=== PATIENT | female | born 1990 | race Caucasian/White ===

== ENCOUNTER 2022-11-10 07:49 | Inpatient (IN) ==
[2022-11-11] MEDS ORDERED: DINOPROSTONE 10 MG INSERT PV ONE (09:44)
[2022-11-11] MEDS ORDERED: LIDOCAINE 1% LOCAL 20 ML VIAL INFIL PRN (10:15)
[2022-11-11] MEDS ORDERED: LACTATED RINGER'S 1,000 ML IV PRN (10:15)
[2022-11-11] MEDS ORDERED: OXYTOCIN 30 UNITS/500 ML BAG IV PRN (10:15)
--- NOTE | 2022-11-11 10:42 | History & Physical Report ---
Date of Service November 11, 2022 Assessment & Plan (1) Encounter for induction of labor: Present on Admission?: Yes Plan Admit to L and D Regular diet x 2 then npo/iv fluids labs Cervidil placed PV for cervical softening consider Pitocin for augmentation of labor pain meds including epidural as the pt desires Admission and Anticipated Discharge Date Admission Date: November 11, 2022 History of Present Illness Chief Complaint: pt 32 yr old G1 IUP at 40 weeks 2 days for induction of labor for post dates. Primary Care Provider: NO PCP pt denies regular uterine contractions, vaginal bleeding, leaking of fluid per vagina. reports good movement. Allergies Allergy/AdvReac Type Severity Reaction Status Date / Time No Known Allergies Allergy NONE Unverified 03/12/09 11:44 Home Medications Medication Instructions Recorded Confirmed Type ferrous sulfate 325 mg (65 mg 325 mg PO BID ##0 03/12/09 11/11/22 History iron) tablet (Iron (ferrous sulfate)) docusate sodium 100 mg capsule 100 mg PO 11/11/22 History (Colace) Patient History Medical History Anemia Anxiety Scoliosis Surgical History Hx of tonsillectomy Social History Smoking Status: Never smoker Second Hand Exposure: No; Do You Dip or Chew Tobacco: No; Tobacco Cessation Education Requested by Patient: No Hx Alcohol Use: No Hx Substance Use: No Preferred Language: [place] Communication Ability: Effective Straddle Bug Operator Required: No Beliefs That Will Affect Care: None marital status: Current Living Situation: Spouse Current Living Situation Comment: Memo- Other Information That Helps Us Care for You: No Feels Safe at Home: Yes Safety Concerns: Feels Safe At This Time Assistive Devices: None Review of Systems All systems reviewed & are unremarkable except as noted in HPI & below as per Subjective / HPI as per Subjective / HPI as per Subjective / HPI as per Subjective / HPI as per Subjective / HPI Physical Exam Constitutional: WD/WN, vitals as above Respiratory: normal respiratory effort, lungs clear to auscultation Cardiovascular: RRR, no murmur, no edema Gastrointestinal (Abdomen): normal bowel sounds, soft, nontender, no hepatosplenomegaly Skin: no rashes, warm and dry Psychiatric: A+Ox3, euthymic affect Genitourinary: no vaginal lesions, no adnexal mass OB Exam Abdomen: + fundal height (39 cm), + heart tones (140s, good variability, positive accelerations), + vertex, + estimated weight (7 lbs 5 ozs) and + regular contractions Manual OB Exam: + cervical dilation fingertip, + cervical effacement 40% and + station high OB Exam Monitor Tracing: + external FHT monitor used and + category I Results & Data Vital Signs (Past 12 Hours) Vital Signs Temp Pulse Resp BP 11/11/22 10:32 70 132/71 11/11/22 09:22 88 123/81 11/11/22 09:22 37.3 C 88 18 123/81 Supervising Physician Co-Signing Physician Notes DR. Lm Ferguson MD
[2022-11-11 11:03] LABS: Hematocrit (blood only) 34.7 % (37.0-47.0); Hemoglobin 12.2 g/dl (12.0-16.0); Mean Corpuscular Hemoglobin 33.2 pg (25.0-34.0); Mean Corpuscular Hgb Conc 35.2 g/dL (32.0-36.0); Mean Corpuscular Volume 94.3 fL (80.0-100.0); Mean Platelet Volume 10.2 fL (9.4-12.4); Platelet Count 168 K/uL (130-400); RDW Coefficient of Variation 13.6 % (11.5-14.5); RDW Standard Deviation 47.3 fL (36.4-46.3); Red Blood Count 3.68 M/uL (4.20-5.40); White Blood Count 9.76 K/ul (4.8-10.8)
[2022-11-11] MEDS: ACETAMINOPHEN 500 MG TAB PO PRN (23:27)
[2022-11-12] MEDS ORDERED: miSOPROStoL 25 MCG TAB PO ONE (04:38)
[2022-11-12] MEDS ORDERED: DINOPROSTONE 10 MG INSERT PV ONE (08:53)
--- NOTE | 2022-11-12 09:12 | Labor Progress Brief Note ---
Date of Service November 12, 2022 Subjective Reason For Note: Routine Evaluation Assessment & Plan (1) Encounter for induction of labor: Plan Cervidil ( second one ) placed PV for cervical softening pain meds as the pt desires Admission and Anticipated Discharge Date Admission Date: November 11, 2022 Physical Exam Constitutional: WD/WN, vitals as above Genitourinary: no vaginal lesions, no adnexal mass OB Exam Abdomen: + heart tones (140s, Good variability, positive accelerations ), + vertex and + posterior Manual OB Exam: + cervical dilation fingertip, + cervical effacement 40% and + station high OB Exam Monitor Tracing: + external FHT monitor used and + category I Results & Data Vital Signs (Past 12 Hours) Vital Signs Temp Pulse Resp BP 11/12/22 08:00 37.1 C 16 11/12/22 08:00 16 11/12/22 07:58 71 118/75 11/12/22 03:48 61 116/74 11/11/22 22:55 36.9 C 68 18 121/71 Supervising Physician Co-Signing Physician Notes Dr. Lm Ferguson MD
[2022-11-12] MEDS: ACETAMINOPHEN 500 MG TAB PO PRN (20:16)
--- NOTE | 2022-11-12 22:24 | Labor Progress Brief Note ---
Date of Service November 12, 2022 Subjective Reason For Note: Routine Evaluation Assessment & Plan (1) Encounter for induction of labor: Plan Cervidil PV removed Will consider pitocon if the contractions space out For now: warm showers, ambulation Stadol 1 MG IV prn , when pt ready can get epidural Admission and Anticipated Discharge Date Admission Date: November 11, 2022 Physical Exam Physical Exam: pt c/o regular painful contractions. Constitutional: WD/WN, vitals as above Genitourinary: OB Exam Abdomen: + heart tones (140s, Good variability, positive accelerations ) and + vertex Manual OB Exam: + cervical dilation (1 to 2 cm), + cervical effacement 70% and + station -2 OB Exam Monitor Tracing: + external FHT monitor used and + category I Results & Data Vital Signs (Past 12 Hours) Vital Signs Temp Pulse Resp BP 11/12/22 19:03 37.0 C 20 11/12/22 19:07 68 122/76 11/12/22 15:55 37.0 C 83 16 121/67 11/12/22 13:30 18 11/12/22 13:30 37.1 C 18 11/12/22 13:12 74 121/68 Supervising Physician Co-Signing Physician Notes DR. Lm Ferguson MD
[2022-11-12] MEDS ORDERED: BUTORPHANOL TARTRATE 1 MG/ML VIAL IV PRN (23:02)
--- NOTE | 2022-11-13 10:04 | Labor Progress Brief Note ---
Date of Service November 13, 2022 Assessment & Plan Admission and Anticipated Discharge Date Admission Date: November 11, 2022 Physical Exam Genitourinary: OB Exam Abdomen: + estimated weight Manual OB Exam: + cervical dilation 3 cm and 4 cm, + cervical effacement 70% and + station -2 OB Exam Monitor Tracing: + external FHT monitor used, + external uterine monitor used, + category I and + normal FHT variability EFW 7-8 lbs. Results & Data Vital Signs (Past 12 Hours) Vital Signs Temp Pulse Resp BP 11/13/22 07:05 16 11/13/22 07:05 37.5 C 11/13/22 07:06 71 121/73 11/13/22 04:30 18 11/13/22 04:30 37.1 C 11/13/22 05:17 60 120/59 L 11/12/22 23:52 18 11/12/22 23:52 36.7 C 11/12/22 23:53 70 123/67
[2022-11-13] MEDS: LACTATED RINGER'S 1,000 ML IV PRN ×2 (10:25→11:25)
[2022-11-13] MEDS ORDERED: fentaNYL citrate PF 100 MCG/2 ML VIAL ONE (10:44)
[2022-11-13] MEDS ORDERED: ePHEDrine sulfate 50 MG/ML AMP ONE (10:44)
[2022-11-13] MEDS ORDERED: BUPIVACAINE 0.25% PF 30 ML VIAL ONE (10:45)
[2022-11-13] MEDS ORDERED: fentaNYL 2MCG/ML ROPIVACAINE 1.25MG/ML 100 ML BAG EPI ONE (10:45)
[2022-11-13] MEDS ORDERED: SODIUM CHLORIDE 0.9% PF INJ 10 ML VIAL ONE (10:45)
[2022-11-13] MEDS ORDERED: LIDOCAINE 2%/EPINEPHRINE 1:200,000 20 ML PF ONE (10:45)
[2022-11-13] MEDS ORDERED: ONDANSETRON INJ 2 MG/ML 2 ML VIAL IV PRN (10:46)
[2022-11-13] MEDS ORDERED: ePHEDrine sulfate 50 MG/ML AMP IV PRN (10:46)
[2022-11-13] MEDS ORDERED: diphenhydrAMINE 50 MG/ML VIAL IV PRN (10:46)
[2022-11-13] MEDS ORDERED: fentaNYL citrate PF 100 MCG/2 ML VIAL EPI PRN (10:46)
[2022-11-13] MEDS ORDERED: BUPIVACAINE 0.25% PF 30 ML VIAL EPI PRN (10:46)
[2022-11-13] MEDS ORDERED: SODIUM CHLORIDE 0.9% PF INJ 10 ML VIAL EPI PRN (10:46)
[2022-11-13] MEDS ORDERED: SODIUM CHLORIDE 0.9% PF INJ 10 ML VIAL EPI STA (10:46)
[2022-11-13] MEDS ORDERED: fentaNYL citrate PF 100 MCG/2 ML VIAL EPI STA (10:46)
[2022-11-13] MEDS ORDERED: LIDOCAINE 2% MPF LOCAL 5 ML VIAL EPI PRN (10:46)
[2022-11-13] MEDS ORDERED: BUPIVACAINE 0.25% PF 30 ML VIAL EPI STA (10:46)
[2022-11-13] MEDS ORDERED: fentaNYL 2MCG/ML ROPIVACAINE 1.25MG/ML 100 ML BAG EPI PRN (10:46)
[2022-11-13] MEDS ORDERED: NALBUPHINE HCL INJ 10 MG/ML AMP IV PRN (10:46)
[2022-11-13] MEDS ORDERED: NALOXONE HCL 1 MG in SODIUM CHLORIDE 0.9% 1000ML 1,000 ML IV PRN (10:46)
[2022-11-13] MEDS ORDERED: LIDOCAINE 2%/EPINEPHRINE 1:200,000 20 ML PF EPI STA (10:46)
[2022-11-13] MEDS ORDERED: NALOXONE HCL 0.4 MG/1 ML VIAL/CARP IV PRN (10:46)
[2022-11-13] MEDS ORDERED: ROPIVACAINE 0.5% PF 5 MG/ML 20 ML VIAL EPI PRN (10:46)
--- NOTE | 2022-11-13 10:46 | Anesthesiology Consultation ---
Date of Service November 13, 2022 Assessment & Plan ASA ASA2 Proposed Anesthesia Anesthesia Type: Labor Epidural Risk / Benefits Reviewed With: PT / POA / Parent / Guardian, Accepts Plan and Informed Consent Obtained History Height/Weight Height: 5 ft 4 in Weight: 93.44 kg Allergies Allergy/AdvReac Type Severity Reaction Status Date / Time No Known Allergies Allergy NONE Unverified 03/12/09 11:44 Medications Home Medications Medication Instructions Recorded Confirmed Last Taken ferrous sulfate 325 mg (65 mg 325 mg PO BID ##0 03/12/09 11/11/22 Unknown iron) tablet (Iron (ferrous sulfate)) docusate sodium 100 mg capsule 100 mg PO 11/11/22 Unknown (Colace) Active Medications Generic Name Dose Route Start Last Admin Trade Name Freq PRN Reason Stop Dose Admin Acetaminophen 1,000 mg 11/11/22 23:23 11/12/22 20:16 Acetaminophen 500 Mg Tab PO 12/11/22 23:22 1,000 mg Q8H PRN Administration Pain Lactated Ringer's 1,000 mls @ 125 mls/hr 11/13/22 10:27 11/13/22 10:25 Lr IV 12/13/22 10:26 999 mls/hr .Q8H PRN Administration L&D Protocol Protocol Past Medical History Medical History Anemia Anxiety Scoliosis Exercise / Class Metabolic Activity II 4-5 Yardwork/Stairs/Walk up hill Past Surgical History Surgical History Hx of tonsillectomy Past Anesthesia History No Hx of Anesthesia Complications and No Family Hx of Anesthesia Complications History of PONV No Hx of PONV and No Hx of Motion Sickness Social History Smoking Status: Never smoker Do You Dip or Chew Tobacco: No Hx Alcohol Use: No Hx Substance Use: No Review of Systems denies fever/cough/ colds/ chest pain/ SOB/ EZEQUIEL denies EZEQUIEL Physical Exam Vital Signs Last Vital Signs Temp 37.5 C 11/13/22 07:05 Pulse 73 11/13/22 11:17 Resp 16 11/13/22 07:05 BP 110/62 11/13/22 11:17 Pulse Ox 98 11/13/22 11:13 ENMT Mouth: no TMJ abnormality and no dentition abnormality Thyromental Distance: > or= 3.5 Finger Breadths Mallampati Class: II Neck neck extension not limited Respiratory normal respiratory effort; no respiratory distress Auscultation: lungs clear to auscultation bilaterally Cardiovascular Rate/Rhythm: regular rate and regular rhythm Neurologic moves all extremities Psychiatric Orientation: alert and oriented x 3 Testing Laboratory Results 11/11/22 10:37 Blood Type A Positive 11/11/22 10:37 Antibody Screen NEGATIVE 11/11/22 10:37
[2022-11-13] MEDS ORDERED: OXYTOCIN 30 UNITS/500 ML BAG IV PRN ×3 (11:46→17:06)
--- NOTE | 2022-11-13 13:36 | Labor Progress Brief Note ---
Date of Service November 13, 2022 Assessment & Plan Admission and Anticipated Discharge Date Admission Date: November 11, 2022 Physical Exam Genitourinary: Manual OB Exam: + cervical dilation 4 cm and 5 cm, + cervical effacement 70%, + station -2 and + amniotic fluid meconium AROM with Amni-hook clear fluid Results & Data Vital Signs (Past 12 Hours) Vital Signs Temp Pulse Resp BP Pulse Ox 11/13/22 13:28 85 98 11/13/22 13:23 65 98 11/13/22 13:18 69 113/61 97 11/13/22 13:13 70 98 11/13/22 13:08 69 98 11/13/22 13:03 96 11/13/22 13:03 77 11/13/22 13:03 70 115/62 11/13/22 12:58 68 98 11/13/22 12:53 66 97 11/13/22 12:48 75 98 11/13/22 12:43 69 98 11/13/22 12:38 71 98 11/13/22 12:33 89 99 11/13/22 12:28 81 98 11/13/22 12:23 79 97 11/13/22 12:18 68 107/55 L 98 11/13/22 12:13 63 95 11/13/22 12:12 69 94 11/13/22 12:08 72 98 11/13/22 12:02 18 11/13/22 12:02 37.6 C H 18 11/13/22 12:03 99 11/13/22 12:03 74 11/13/22 12:03 75 99/62 L 11/13/22 11:58 76 96 11/13/22 11:53 69 98 11/13/22 11:48 67 107/58 L 98 11/13/22 11:43 68 100 11/13/22 11:38 66 97 11/13/22 11:33 70 98 11/13/22 11:28 80 97 11/13/22 11:27 75 112/61 11/13/22 11:23 82 97 11/13/22 11:22 83 106/63 11/13/22 11:18 84 98 11/13/22 11:17 73 110/62 11/13/22 11:13 75 103/56 L 98 11/13/22 11:10 71 108/53 L 11/13/22 11:07 77 117/58 L 98 11/13/22 11:02 87 98 11/13/22 10:57 104 H 98 11/13/22 10:52 102 H 98 11/13/22 07:05 16 11/13/22 07:05 37.5 C 16 11/13/22 07:06 71 121/73 11/13/22 04:30 18 11/13/22 04:30 37.1 C 18 11/13/22 05:17 60 120/59 L
--- NOTE | 2022-11-13 16:04 | Labor Progress Brief Note ---
Date of Service November 13, 2022 Assessment & Plan Admission and Anticipated Discharge Date Admission Date: November 11, 2022 Physical Exam Genitourinary: Manual OB Exam: + cervical dilation 10 cm, + cervical effacement 100% and + station + 1 OB Exam Monitor Tracing: + external FHT monitor used, + external uterine monitor used, + category I and + normal FHT variability Results & Data Vital Signs (Past 12 Hours) Vital Signs Temp Pulse Resp BP Pulse Ox 11/13/22 14:20 37.9 C H 11/13/22 16:02 113 H 132/76 11/13/22 15:58 96 H 99 11/13/22 15:53 78 98 11/13/22 15:48 64 98 11/13/22 15:47 68 119/65 11/13/22 15:43 66 97 11/13/22 15:38 67 98 11/13/22 15:33 77 98 11/13/22 15:32 64 103/59 L 11/13/22 15:28 77 98 11/13/22 15:00 37.0 C 11/13/22 15:20 16 11/13/22 15:20 37.0 C 16 11/13/22 15:23 71 99 11/13/22 15:18 76 98 11/13/22 15:16 69 115/63 11/13/22 15:13 73 97 11/13/22 15:08 71 98 11/13/22 15:03 77 97 11/13/22 15:01 74 115/70 11/13/22 14:58 64 96 11/13/22 14:53 77 96 11/13/22 14:48 94 H 99 11/13/22 14:47 77 126/66 11/13/22 14:43 72 97 11/13/22 14:38 68 95 11/13/22 14:33 95 11/13/22 14:33 69 11/13/22 14:33 71 105/60 11/13/22 14:28 72 96 11/13/22 14:23 72 97 11/13/22 14:18 67 110/56 L 97 11/13/22 14:13 71 96 11/13/22 14:08 74 97 11/13/22 14:03 79 98 11/13/22 14:01 80 113/56 L 11/13/22 13:58 73 97 07/31/23 13:53 69 97 11/13/22 13:48 74 97 11/13/22 13:40 18 11/13/22 13:40 36.8 C 18 11/13/22 13:43 78 98 11/13/22 13:38 86 98 11/13/22 13:33 88 98 11/13/22 13:28 85 98 11/13/22 13:23 65 98 11/13/22 13:18 69 113/61 97 11/13/22 13:13 70 98 11/13/22 13:08 69 98 11/13/22 13:03 96 11/13/22 13:03 77 11/13/22 13:03 70 115/62 11/13/22 12:58 68 98 11/13/22 12:53 66 97 11/13/22 12:48 75 98 11/13/22 12:43 69 98 11/13/22 12:38 71 98 11/13/22 12:33 89 99 11/13/22 12:28 81 98 11/13/22 12:23 79 97 11/13/22 12:18 68 107/55 L 98 11/13/22 12:13 63 95 11/13/22 12:12 69 94 11/13/22 12:08 72 98 11/13/22 12:02 18 11/13/22 12:02 37.6 C H 18 11/13/22 12:03 99 11/13/22 12:03 74 11/13/22 12:03 75 99/62 L 11/13/22 11:58 76 96 11/13/22 11:53 69 98 11/13/22 11:48 67 107/58 L 98 11/13/22 11:43 68 100 11/13/22 11:38 66 97 11/13/22 11:33 70 98 11/13/22 11:28 80 97 11/13/22 11:27 75 112/61 11/13/22 11:23 82 97 11/13/22 11:22 83 106/63 11/13/22 11:18 84 98 11/13/22 11:17 73 110/62 11/13/22 11:13 75 103/56 L 98 11/13/22 11:10 71 108/53 L 11/13/22 11:07 77 117/58 L 98 11/13/22 11:02 87 98 11/13/22 10:57 104 H 98 11/13/22 10:52 102 H 98 11/13/22 07:05 16 11/13/22 07:05 37.5 C 16 11/13/22 07:06 71 121/73 11/13/22 04:30 18 11/13/22 04:30 37.1 C 18 11/13/22 05:17 60 120/59 L
[2022-11-13] MEDS ORDERED: DIPHTHERIA/TETANUS/PERTUSSIS Vaccine (Tdap, Age 7+yrs) 0.5mL SYR/VL IM ONE (17:01)
[2022-11-13] MEDS ORDERED: bisacodyL 10 MG SUPP PR PRN ×2 (17:01→17:06)
[2022-11-13] MEDS ORDERED: BENZOCAINE 20% SPRY 85 APPLN/85 GM CAN EXT PRN ×2 (17:01→17:06)
[2022-11-13] MEDS ORDERED: HYDROCORTISONE ACETATE 25 MG SUPP PR PRN ×2 (17:01→17:06)
[2022-11-13] MEDS ORDERED: ACETAMINOPHEN 325 MG TAB PO PRN (17:06)
[2022-11-13] MEDS ORDERED: IBUPROFEN 600 MG TAB PO PRN (17:06)
--- NOTE | 2022-11-13 17:08 | Delivery Summary ---
Vaginal Delivery Summary Date of Service November 13, 2022 Vaginal Delivery Summary Delivery Note live male WILBERT over intact perineum with nuchal cord x1 reduced at delivery of head. Delayed cord clamping with Apgars 7/8 weight pending. Cord blood obtained followed by spontaneous delivery of intact placenta. First degree tear repaired with 3/0 Vicryl. EBL 150 ml. Final sponge, needle and instrument count are correct. Mom and baby stable.
--- NOTE | 2022-11-13 17:23 | Anesthesiology Progress Note ---
Date of Service November 13, 2022 Anesthesia Post Procedure Vital Signs Vital Signs: Temp Pulse Resp BP Pulse Ox 11/13/22 14:20 37.9 C H 11/12/22 19:03 37.0 C 20 11/13/22 17:16 90 123/72 11/13/22 16:05 20 11/13/22 16:05 37.0 C 20 11/13/22 16:46 108 H 135/71 11/13/22 16:38 124 H 97 11/13/22 16:33 110 H 97 11/13/22 16:31 115 H 142/68 H 11/13/22 16:28 113 H 97 11/13/22 16:23 141 H 96 11/13/22 16:18 144 H 96 11/13/22 16:16 137 H 138/73 11/13/22 16:13 136 H 98 11/13/22 16:08 109 H 99 11/13/22 16:03 120 H 99 11/13/22 16:02 113 H 132/76 11/13/22 15:58 96 H 99 11/13/22 15:53 78 98 11/13/22 15:48 64 98 11/13/22 15:47 68 119/65 11/13/22 15:43 66 97 11/13/22 15:38 67 98 11/13/22 15:33 77 98 11/13/22 15:32 64 103/59 L 11/13/22 15:28 77 98 11/13/22 15:00 37.0 C 11/13/22 15:20 16 11/13/22 15:20 37.0 C 16 11/13/22 15:23 71 99 11/13/22 15:18 76 98 11/13/22 15:16 69 115/63 11/13/22 15:13 73 97 11/13/22 15:08 71 98 11/13/22 15:03 77 97 11/13/22 15:01 74 115/70 11/13/22 14:58 64 96 11/13/22 14:53 77 96 11/13/22 14:48 94 H 99 11/13/22 14:47 77 126/66 11/13/22 14:43 72 97 11/13/22 14:38 68 95 11/13/22 14:33 95 11/13/22 14:33 69 07/31/23 14:33 71 105/60 11/13/22 14:28 72 96 11/13/22 14:23 72 97 11/13/22 14:18 67 110/56 L 97 11/13/22 14:13 71 96 11/13/22 14:08 74 97 11/13/22 14:03 79 98 11/13/22 14:01 80 113/56 L 11/13/22 13:58 73 97 11/13/22 13:53 69 97 11/13/22 13:48 74 97 11/13/22 13:40 18 11/13/22 13:40 36.8 C 18 11/13/22 13:43 78 98 11/13/22 13:38 86 98 11/13/22 13:33 88 98 11/13/22 13:28 85 98 11/13/22 13:23 65 98 11/13/22 13:18 69 113/61 97 11/13/22 13:13 70 98 11/13/22 13:08 69 98 11/13/22 13:03 96 11/13/22 13:03 77 11/13/22 13:03 70 115/62 11/13/22 12:58 68 98 11/13/22 12:53 66 97 11/13/22 12:48 75 98 11/13/22 12:43 69 98 11/13/22 12:38 71 98 11/13/22 12:33 89 99 11/13/22 12:28 81 98 11/13/22 12:23 79 97 11/13/22 12:18 68 107/55 L 98 11/13/22 12:13 63 95 11/13/22 12:12 69 94 11/13/22 12:08 72 98 11/13/22 12:02 18 11/13/22 12:02 37.6 C H 18 11/13/22 12:03 99 11/13/22 12:03 74 11/13/22 12:03 75 99/62 L 11/13/22 11:58 76 96 11/13/22 11:53 69 98 11/13/22 11:48 67 107/58 L 98 11/13/22 11:43 68 100 11/13/22 11:38 66 97 11/13/22 11:33 70 98 11/13/22 11:28 80 97 11/13/22 11:27 75 112/61 11/13/22 11:23 82 97 11/13/22 11:22 83 106/63 11/13/22 11:18 84 98 11/13/22 11:17 73 110/62 11/13/22 11:13 75 103/56 L 98 11/13/22 11:10 71 108/53 L 11/13/22 11:07 77 117/58 L 98 11/13/22 11:02 87 98 11/13/22 10:57 104 H 98 11/13/22 10:52 102 H 98 11/13/22 07:05 16 11/13/22 07:05 37.5 C 16 11/13/22 07:06 71 121/73 11/13/22 04:30 18 11/13/22 04:30 37.1 C 18 11/13/22 05:17 60 120/59 L 11/12/22 23:52 18 11/12/22 23:52 36.7 C 18 11/12/22 23:53 70 123/67 11/12/22 19:07 68 122/76 Pain Intensity Bilateral Abdomen: Pain Intensity: 2 Transfer of Care Handoff Completed per policy Notes Mental Status: alert / awake / arousable and participated in evaluation Patient Amnestic to Procedure: Yes Nausea / Vomiting: adequately controlled Pain: adequately controlled Airway Patency, RR, SpO2: stable & adequate BP & HR: stable & adequate Hydration State: stable & adequate Anesthetic Complications: no major complications apparent and Pt Satisfied with anesthetic care
[2022-11-13] MEDS: LACTATED RINGER'S 1,000 ML IV SCH (18:09)
[2022-11-13] MEDS: ACETAMINOPHEN 325 MG TAB PO PRN (18:28)
--- NOTE | 2022-11-13 18:51 | Communication Note ---
Date of Service: November 13, 2022 pt c/o headache and neck pain after an epidural. epidural was placed and removed today. Pt says sh has a whole head dull ache. 06/23. nothing makes it better or worse. pt is sitting upright with the lights on in the room. Pt is able to move the neck in all directions. she says there is a burning sensation in her neck. Pt also notes that during the dosing of the epidural, she felt a cold sensation run up her back. I do not feel that this is a spinal headache at this time. No evidence of wet tap at time of placement. I told the patient we are available to reevaluate if it doesn't get better
[2022-11-13] MEDS: IBUPROFEN 600 MG TAB PO PRN (19:54)
[2022-11-13] MEDS: DOCUSATE SODIUM 100 MG CAP PO SCH (20:35)
[2022-11-13] MEDS ORDERED: DOCUSATE SODIUM 100 MG CAP PO SCH (21:00)
[2022-11-14] MEDS: IBUPROFEN 600 MG TAB PO PRN ×5 (00:23→19:42)
[2022-11-14] MEDS: ACETAMINOPHEN 325 MG TAB PO PRN ×2 (06:06→15:33)
[2022-11-14 07:23] LABS: Hematocrit (blood only) 32.5 % (37.0-47.0); Hemoglobin 10.7 g/dl (12.0-16.0); Mean Corpuscular Hemoglobin 31.8 pg (25.0-34.0); Mean Corpuscular Hgb Conc 32.9 g/dL (32.0-36.0); Mean Corpuscular Volume 96.4 fL (80.0-100.0); Mean Platelet Volume 9.7 fL (9.4-12.4); Platelet Count 132 K/uL (130-400); RDW Coefficient of Variation 13.6 % (11.5-14.5); RDW Standard Deviation 48.5 fL (36.4-46.3); Red Blood Count 3.37 M/uL (4.20-5.40); White Blood Count 11.25 K/ul (4.8-10.8)
[2022-11-14] MEDS: DOCUSATE SODIUM 100 MG CAP PO SCH ×2 (07:47→19:42)
[2022-11-14] MEDS: PRENATAL VITAMIN 1 TAB PO SCH (07:47)
[2022-11-14] MEDS: FERROUS SULFATE 325 MG TAB PO SCH (07:48)
[2022-11-14] MEDS ORDERED: PRENATAL VITAMIN 1 TAB PO SCH (08:00)
[2022-11-14] MEDS: LACTATED RINGER'S 1,000 ML IV SCH (09:27)
--- NOTE | 2022-11-14 10:19 | Obstetrical Progress Note ---
Date of Service November 14, 2022 Subjective Ambulation: ambulating normally Voiding: no voiding problems Passing Gas:: Yes Diet Tolerance:: regular diet Lochia:: Small Feeding Type:: breast feeding Current Pain Level(1-10): 0 doing well Physical Exam Constitutional WD/WN, vitals as above Gastrointestinal (Abdomen) Inspection/Auscultation: abdomen normal to inspection abdomen soft and non-tender fundus firm Musculoskeletal Extremities: extremities normal to inspection Skin no rashes, warm and dry Neurologic patellar DTR's 2+ bilat, sensation intact Psychiatric A+Ox3, euthymic affect Results & Data Vital Signs (Past 12 Hours) Vital Signs Temp Pulse Resp BP O2 Del Method 11/14/22 07:40 36.6 C 62 18 110/69 Room Air 11/14/22 04:35 36.7 C 68 16 106/66 Room Air 11/14/22 00:25 36.4 C L 71 16 110/64 Room Air Laboratory Results Laboratory Results - last 72 hr 11/11/22 11/11/22 11/14/22 10:37 10:37 06:20 WBC 9.76 11.25 H RBC 3.68 L 3.37 L Hgb 12.2 10.7 L Hct 34.7 L 32.5 L MCV 94.3 96.4 MCH 33.2 31.8 MCHC 35.2 32.9 RDW Std Deviation 47.3 H 48.5 H RDW Coeff of Sofya 13.6 13.6 Plt Count 168 132 MPV 10.2 9.7 Blood Type A Positive Antibody Screen NEGATIVE
[2022-11-14] MEDS ORDERED: bisacodyL 5 MG TABEC PO SCH ×2 (20:00)
[2022-11-15] MEDS: IBUPROFEN 600 MG TAB PO PRN ×2 (04:03→08:20)
[2022-11-15 06:40] LABS: Hematocrit (blood only) 33.3 % (37.0-47.0); Hemoglobin 11.1 g/dl (12.0-16.0)
[2022-11-15] MEDS: DOCUSATE SODIUM 100 MG CAP PO SCH (08:20)
[2022-11-15] MEDS: FERROUS SULFATE 325 MG TAB PO SCH (08:20)
[2022-11-15] MEDS: PRENATAL VITAMIN 1 TAB PO SCH (08:20)
--- NOTE | 2022-11-15 08:26 | Obstetrical Progress Note ---
Date of Service November 15, 2022 Assessment & Plan (1) Vaginal delivery: Plan discharge plan for today. Pt clinically and hemodynamically stable instructions follow up in the office in 3 weeks and 6 weeks for visit Admission and Anticipated Discharge Date Admission Date: November 11, 2022 Supervising Physician Co-Signing Physician Notes DR. Lm Ferguson MD Subjective s/p . Pt doing well. Denies any heavy vaginal bleeding, vaginal pain. Normal lochia. Breast feeding the baby. Review of Systems Review of Systems: All systems reviewed & are unremarkable except as noted in HPI & below Physical Exam Constitutional: WD/WN, vitals as above Genitourinary: Deferred Results & Data Vital Signs (Past 12 Hours) Vital Signs Temp Pulse Resp BP Pulse Ox O2 Del Method 11/14/22 23:45 36.4 C L 52 L 16 114/74 98 Room Air
== END 2022-11-15 13:58 | disposition home or self-care (01) | DRG 807 ==
LOC: 4S1 11-11 08:49 → 4E2 11-13 20:40